=== PATIENT | male | born 2000 | race Caucasian/White ===

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

== ENCOUNTER 2022-08-30 14:11 | Inpatient (IN) | payer OTHER ==
[~2022-08-30 14:11] MED LIST: Iopamidol-370 76% 500 ML 1 ML ONE
[2022-08-30] MEDS ORDERED: FENTANYL 50 MCG/ML 1 ML VIAL ONE (14:35)
[2022-08-30] MEDS ORDERED: Ketamine 50 MG/ML (10ML VIAL) ONE (14:56)
[2022-08-30 15:03] LABS: Hemoglobin 13.9 g/dL (14.0-18.0); Mean Corpuscular HGB CONC 33.2 g/dL (32.0-36.0); Mean Corpuscular Hemoglobin 30.6 pg (25.0-35.0); Mean Corpuscular Volume 92.2 fl (78.0-98.0); Mean Platelet Volume 7.4 fL (7.4-10.4); Platelet Count 601 10x3/uL (130-400); RBC Distribution Width 11.7 % (11.5-14.5); Red Blood Cell (RBC) Count 4.55 mill/uL (4.00-5.20)
[2022-08-30] MEDS ORDERED: Rocuronium Bromide 10 MG/ML (10ML VIAL) ONE (15:06)
[2022-08-30] MEDS ORDERED: Midazolam HCl 2 mg/2 ml Vial ONE ×2 (15:11→16:21)
[2022-08-30] MEDS ORDERED: Fentanyl CADD 100 ML IV SCH ×2 (15:15→18:30)
[2022-08-30 15:22] LABS: Band 9 % (5-11); Lymphocytes 16 % (28-48); MDiff Complete? YES; Monocytes 6 % (0-4); Neutrophil 67 % (31-61); Platelet Morphology Comment Appears Increased; RBC Morphology Normal; Reactive Lymphocytes 2 % (0-10); Reflex for Review?? YES
[2022-08-30 15:24] LABS: ALT (SGPT) 114 U/L (8-55); AST (SGOT) 136 U/L (10-45); Albumin 4.6 g/dL (3.5-5.0); Alkaline Phosphatase 105 U/L (50-130); Anion Gap 19 mmol/L (10-20); BUN (Urea Nitrogen) 15 mg/dL (8.4-21.0); Bilirubin, Total 0.5 mg/dL (0.2-1.2); Calc. Creatinine Clearance 0 mL/min (70-130); Calcium 9.3 mg/dL (7.8-10.44); Carbon Dioxide 17 mmol/L (22-29); Chloride 105 mmol/L (98-107); Estimated GFR 88; Globulin 2.8 g/dL (2.4-3.5); Glucose 229 mg/dL (70-105); Potassium 4.3 mmol/L (3.5-5.1); Protein, Total 7.4 g/dL (6.0-8.3); Sodium 137 mmol/L (136-145)
[2022-08-30 16:36] LABS: SARS-CoV-2 NAA Rapid Test Not Detected (NotDetected)
[2022-08-30 16:37] LABS: Actual Bicarbonate (HCO3a) 23.4 mEq/L (22-28); Analyzer IN Cardio ER; Base Excess (BEa) -5.2 mEq/L (-2.0 to +3.0); CO2 Tension 58.4 mmHg (35.0-45.0); Calcium, Ionized (arterial) 1.18 mmol/L (1.12-1.30); Carboxyhemoglobin (COHb) 0.3 gm% (0.0-3.0); Hemoglobin (Hb) 14.7 g/dL (11.4-15.4); O2 Tension (PaO2), arterial 149.3 mmHg (80.0-100.0); Potassium - ABG Lab 3.63 mmol/L (3.70-5.30); pH, Arterial 7.22 (7.35-7.45)
[2022-08-30 16:38] LABS: Puncture Site RRA
[2022-08-30] MEDS ORDERED: Boostrix 0.5 ML (Tdap) VIAL (>/=7 yrs of age) ONE (16:43)
[2022-08-30] MEDS ORDERED: Propofol 1,000 MG/100 ML VIAL IV ONE (16:48)
[2022-08-30] MEDS ORDERED: Dextrose 50% Abboject 50 ML SYRINGE SLOW IVP PRN (17:36)
[2022-08-30] MEDS ORDERED: Dextrose 5% in Water 1,000 ML IV PRN (17:36)
[2022-08-30] MEDS ORDERED: Ondansetron PF 4 MG/2 ML Vial IVP PRN (17:36)
[2022-08-30] MEDS ORDERED: hydrALAZINE 20 MG/ML VIAL SLOW IVP PRN (17:36)
[2022-08-30] MEDS ORDERED: Insulin Regular 300 UNITS/3 ML VIAL SC PRN (17:36)
[2022-08-30] MEDS ORDERED: Ventilator Sedation Protocol 1 EACH FS SCH (17:45)
[2022-08-30 18:17] LABS: Actual Bicarbonate (HCO3a) 24.4 mEq/L (22-28); Base Excess (BEa) -3.3 mEq/L (-2.0 to +3.0); CO2 Tension 55.2 mmHg (35.0-45.0); Calcium, Ionized (arterial) 1.18 mmol/L (1.12-1.30); Carboxyhemoglobin (COHb) 0.4 gm% (0.0-3.0); Hemoglobin (Hb) 13.4 g/dL (11.4-15.4); O2 Tension (PaO2), arterial 105.4 mmHg (80.0-100.0); Potassium - ABG Lab 3.97 mmol/L (3.70-5.30); pH, Arterial 7.26 (7.35-7.45)
[2022-08-30] MEDS ORDERED: Midazolam HCl 2 mg/2 ml Vial SLOW IVP PRN (18:18)
[2022-08-30] MEDS ORDERED: TETANUS, DIPHTHERIA TOX,ADULT (TDVAX) 0.5 ML VIAL IM ONE (18:30)
[2022-08-30] MEDS ORDERED: DISCONTINUE PREVIOUS NARCOTIC PAIN MEDICATIONS AND BENZODIAZEPINES FS SCH (18:30)
[2022-08-30] MEDS ORDERED: Propofol 1,000 MG/100 ML VIAL IV PRN (18:30)
[2022-08-30] MEDS ORDERED: Morphine 4 MG/ML VIAL SLOW IVP PRN (18:30)
[2022-08-30] MEDS ORDERED: Fentanyl BOLUS 250 ML IVPB PRN (18:30)
[2022-08-30] MEDS ORDERED: Propofol BOLUS 1,000 MG/100 ML VIAL IV PRN (18:30)
[2022-08-30 18:33] LABS: Puncture Site RBR
[2022-08-30] MEDS: Sodium Chloride 0.9% 1,000 ML IV SCH (18:35)
[2022-08-30 18:43] LABS: INR-International Normal Ratio 1.9; Prothrombin Time 22.1 sec (12.0-14.7)
[2022-08-30 18:44] LABS: PTT 47.9 sec (22.9-36.1)
[2022-08-30 18:48] LABS: Lactic Acid 1.5 mmol/L (0.5-2.2)
[2022-08-30 18:51] LABS: Alcohol Less than 10 mg/dL (Less than 10); Magnesium 1.1 mg/dL (1.7-2.2); Phosphorus 1.9 mg/dL (2.3-4.7)
[2022-08-30 18:56] LABS: Troponin I Less than 0.010 ng/mL (< 0.028)
[2022-08-30 19:09] LABS: Bacteria/HPF None Seen HPF (None Seen); Bilirubin Negative (Negative); Blood, Urine Trace (Negative); CAUTI Indications for Culture Alt mental st,lethar; Clarity Clear (Clear); Glucose, Urine (Dipstick) Normal (Negative); Ketone, Urine Negative (Negative); Leukocyte Negative Leu/uL (Negative); Nitrite Negative (Negative); Protein, Urine (Dipstick) Negative (Neg-Trace); RBC/HPF 0-3 HPF (0-3); Squamous Epithelial 0-3 HPF (0-3); Urobilinogen Normal mg/dL (Less than 2); WBC/HPF 0-3 HPF (0-3)
[2022-08-30 19:11] LABS: Specific Gravity, Urine 1.063 (1.002-1.036)
[2022-08-30 19:12] LABS: Urine Culture Reflex No No
[2022-08-30 19:15] LABS: Amphetamine Not Detected (NotDetected); Barbiturates Screen Not Detected (NotDetected); Benzodiazepine Screen Not Detected (NotDetected); Cocaine Metabolite Screen Not Detected (NotDetected); Methadone Not Detected (NotDetected); Methamphetamine Not Detected (NotDetected); Opiate Screen Detected (NotDetected); Oxycodone Screen Not Detected (NotDetected); Phencyclidine (PCP) Not Detected (NotDetected); THC/Cannabinoid Screen Not Detected (NotDetected); Tricyclic Screen Not Detected (NotDetected)
[2022-08-30] MEDS ORDERED: Magnesium 2 GM/50 ML(in water) 4 GM in Premix Bag 1 BAG IVPB SCH (19:15)
[2022-08-30] MEDS ORDERED: Sodium Phosphate 30 MMOL in Sodium Chloride 0.9% 250 ML 250 ML IVPB SCH (19:15)
[2022-08-30 19:53] LABS: Actual Bicarbonate (HCO3a) 22.9 mEq/L (22-28); Base Excess (BEa) -3.4 mEq/L (-2.0 to +3.0); CO2 Tension 45.9 mmHg (35.0-45.0); Calcium, Ionized (arterial) 1.15 mmol/L (1.12-1.30); Carboxyhemoglobin (COHb) 0.1 gm% (0.0-3.0); Hemoglobin (Hb) 13.4 g/dL (11.4-15.4); O2 Tension (PaO2), arterial 134.7 mmHg (80.0-100.0); Potassium - ABG Lab 4.12 mmol/L (3.70-5.30); pH, Arterial 7.32 (7.35-7.45)
[2022-08-30 19:56] LABS: ALV-art Gradient 93.125 mmHg (0-20); Puncture Site RBR
[2022-08-30] MEDS: Famotidine/PF 20 mg/2ml Vial SLOW IVP SCH (21:01)
[2022-08-30 23:53] LABS: Actual Bicarbonate (HCO3a) 22.9 mEq/L (22-28); CO2 Tension 44.5 mmHg (35.0-45.0); Hemoglobin (Hb) 12.6 g/dL (11.4-15.4); O2 Tension (PaO2), arterial 114.2 mmHg (80.0-100.0); Potassium - ABG Lab 4.48 mmol/L (3.70-5.30); pH, Arterial 7.33 (7.35-7.45)
[2022-08-30 23:55] LABS: Puncture Site RBR
[2022-08-30 23:56] LABS: ALV-art Gradient 115.375 mmHg (0-20)
[2022-08-31] MEDS: Sodium Chloride 0.9% 1,000 ML IV SCH ×3 (02:12→18:51)
[2022-08-31 06:57] LABS: Base Excess (BEa) -1.5 mEq/L (-2.0 to +3.0); CO2 Tension 38.1 mmHg (35.0-45.0); Calcium, Ionized (arterial) 1.13 mmol/L (1.12-1.30); Carboxyhemoglobin (COHb) 0.2 gm% (0.0-3.0); Hemoglobin (Hb) 12.3 g/dL (11.4-15.4); O2 Tension (PaO2), arterial 121.7 mmHg (80.0-100.0); Potassium - ABG Lab 4.28 mmol/L (3.70-5.30)
[2022-08-31 07:03] LABS: ALV-art Gradient 115.875 mmHg (0-20); Puncture Site RBA
[2022-08-31] MEDS: Famotidine/PF 20 mg/2ml Vial SLOW IVP SCH ×2 (08:44→20:08)
[2022-08-31 10:07] LABS: #Lymphocytes 1.6 thou/uL (1.20-3.40); #Monocytes 1.6 thou/uL (0.11-0.59); #Neutrophils 15.4 thou/uL (1.40-6.50); %Basophils 0.1 % (0.0-1.0); %Eosinophils 0.1 % (0.0-10.0); %Lymphocytes 8.7 % (28.0-48.0); %Monocytes 8.7 % (0.0-4.0); %Neutrophils 82.5 % (31.0-61.0); Hemoglobin 10.5 g/dL (14.0-18.0); Mean Corpuscular HGB CONC 33.1 g/dL (32.0-36.0); Mean Corpuscular Hemoglobin 31.1 pg (25.0-35.0); Mean Corpuscular Volume 93.8 fl (78.0-98.0); Mean Platelet Volume 6.7 fL (7.4-10.4); Platelet Count 361 10x3/uL (130-400); RBC Distribution Width 11.7 % (11.5-14.5); Red Blood Cell (RBC) Count 3.39 mill/uL (4.00-5.20); White Blood Cell (WBC) Count 18.7 10x3/uL (4.8-10.8)
[2022-08-31 10:30] LABS: ALT (SGPT) 65 U/L (8-55); AST (SGOT) 44 U/L (10-45); Albumin 3.4 g/dL (3.5-5.0); Alkaline Phosphatase 65 U/L (50-130); Anion Gap 11 mmol/L (10-20); BUN (Urea Nitrogen) 8 mg/dL (8.4-21.0); Bilirubin, Total 0.5 mg/dL (0.2-1.2); Calc. Creatinine Clearance 193 mL/min (70-130); Calcium 7.6 mg/dL (7.8-10.44); Carbon Dioxide 21 mmol/L (22-29); Chloride 106 mmol/L (98-107); Estimated GFR 134; Globulin 1.9 g/dL (2.4-3.5); Glucose 106 mg/dL (70-105); Magnesium 1.9 mg/dL (1.7-2.2); Phosphorus 3.8 mg/dL (2.3-4.7); Potassium 3.8 mmol/L (3.5-5.1); Protein, Total 5.3 g/dL (6.0-8.3); Sodium 134 mmol/L (136-145)
[2022-08-31] MEDS: Aripiprazole 2 MG TAB PO SCH (10:44)
[2022-08-31] MEDS ORDERED: Potassium Phosphate 15 MMOL in Sodium Chloride 0.9% 250 ML 250 ML IVPB SCH (12:15)
[2022-08-31] MEDS: Morphine 4 MG/ML VIAL SLOW IVP PRN ×2 (16:01→22:18)
[2022-08-31] MEDS: Acetaminophen 500 MG TAB PO SCH ×2 (16:16→20:08)
[2022-08-31] MEDS: Acetaminophen/Codeine 30-300mg Tablet PO PRN (19:25)
[2022-09-01] MEDS: Sodium Chloride 0.9% 1,000 ML IV SCH (03:14)
[2022-09-01] MEDS: Acetaminophen 500 MG TAB PO SCH ×4 (03:14→20:19)
[2022-09-01 04:18] LABS: #Eosinphils 0.1 thou/uL (0.0-0.7); #Lymphocytes 1.9 thou/uL (1.20-3.40); #Monocytes 1.3 thou/uL (0.11-0.59); #Neutrophils 12.4 thou/uL (1.40-6.50); %Basophils 0.1 % (0.0-1.0); %Eosinophils 0.8 % (0.0-10.0); %Lymphocytes 12.1 % (28.0-48.0); %Monocytes 8.4 % (0.0-4.0); %Neutrophils 78.5 % (31.0-61.0); Hemoglobin 11.1 g/dL (14.0-18.0); Mean Corpuscular HGB CONC 33.3 g/dL (32.0-36.0); Mean Corpuscular Hemoglobin 31.2 pg (25.0-35.0); Mean Corpuscular Volume 93.9 fl (78.0-98.0); Mean Platelet Volume 7.1 fL (7.4-10.4); Platelet Count 323 10x3/uL (130-400); RBC Distribution Width 11.7 % (11.5-14.5); Red Blood Cell (RBC) Count 3.57 mill/uL (4.00-5.20); White Blood Cell (WBC) Count 15.8 10x3/uL (4.8-10.8)
[2022-09-01 04:42] LABS: Anion Gap 10 mmol/L (10-20); BUN (Urea Nitrogen) 6 mg/dL (8.4-21.0); Calc. Creatinine Clearance 186 mL/min (70-130); Calcium 8.7 mg/dL (7.8-10.44); Carbon Dioxide 24 mmol/L (22-29); Chloride 104 mmol/L (98-107); Estimated GFR 134; Glucose 91 mg/dL (70-105); Phosphorus 2.9 mg/dL (2.3-4.7); Potassium 4.1 mmol/L (3.5-5.1); Sodium 134 mmol/L (136-145)
[2022-09-01] MEDS: Acetaminophen/Codeine 30-300mg Tablet PO PRN (05:12)
[2022-09-01] MEDS: Morphine 4 MG/ML VIAL SLOW IVP PRN ×4 (06:23→20:19)
[2022-09-01] MEDS ORDERED: PHOS-NAK 1 PKT PACK PO SCH (08:00)
[2022-09-01] MEDS: Aripiprazole 2 MG TAB PO SCH (09:02)
[2022-09-01] MEDS: Famotidine 20 MG TAB PO SCH ×2 (09:03→20:19)
[2022-09-02] MEDS: Acetaminophen/Codeine 30-300mg Tablet PO PRN (00:42)
[2022-09-02] MEDS: Acetaminophen 500 MG TAB PO SCH (00:45)
[2022-09-02] MEDS: Morphine 4 MG/ML VIAL SLOW IVP PRN (04:08)
[2022-09-02 05:13] LABS: #Eosinphils 0.4 thou/uL (0.0-0.7); #Lymphocytes 1.9 thou/uL (1.20-3.40); #Monocytes 1.2 thou/uL (0.11-0.59); #Neutrophils 12.4 thou/uL (1.40-6.50); %Basophils 0.3 % (0.0-1.0); %Eosinophils 2.4 % (0.0-10.0); %Lymphocytes 12.1 % (28.0-48.0); %Monocytes 7.5 % (0.0-4.0); %Neutrophils 77.7 % (31.0-61.0); Mean Corpuscular Hemoglobin 30.8 pg (25.0-35.0); Mean Corpuscular Volume 93.1 fl (78.0-98.0); Mean Platelet Volume 6.8 fL (7.4-10.4); Platelet Count 429 10x3/uL (130-400); RBC Distribution Width 11.5 % (11.5-14.5)
[2022-09-02 05:35] LABS: Anion Gap 12 mmol/L (10-20); BUN (Urea Nitrogen) 8 mg/dL (8.4-21.0); Calc. Creatinine Clearance 154 mL/min (70-130); Calcium 9.3 mg/dL (7.8-10.44); Carbon Dioxide 26 mmol/L (22-29); Chloride 102 mmol/L (98-107); Estimated GFR 127; Glucose 95 mg/dL (70-105); Magnesium 2.1 mg/dL (1.7-2.2); Phosphorus 2.8 mg/dL (2.3-4.7); Potassium 4.1 mmol/L (3.5-5.1); Sodium 136 mmol/L (136-145)
[2022-09-02] MEDS ORDERED: Acetaminophen 500 MG TAB PO SCH (08:22)
[2022-09-02] MEDS ORDERED: traMADol HCl 50 MG TAB PO PRN (08:22)
[2022-09-02] MEDS ORDERED: traMADol HCl 50 MG TAB PO SCH ×2 (09:00→12:00)
[2022-09-02] MEDS ORDERED: Ketorolac Tromethamine 30 MG/ML VIAL IVP SCH (09:48)
[2022-09-02] MEDS ORDERED: Cyclobenzaprine 10 MG TAB PO PRN (09:51)
[2022-09-02] MEDS: Enoxaparin Sodium 40 MG/0.4 ML SYRINGE SC SCH (10:44)
[2022-09-02] MEDS: Senokot S 8.6-50 MG TAB PO SCH ×2 (10:45→20:30)
[2022-09-02] MEDS: Polyethylene Glycol 3350 17 GM Packet PO SCH (10:45)
[2022-09-02] MEDS: Aripiprazole 2 MG TAB PO SCH (10:45)
[2022-09-02] MEDS: Famotidine 20 MG TAB PO SCH ×2 (10:45→20:30)
[2022-09-02] MEDS ORDERED: Pregabalin 25 MG CAP PO SCH (11:00)
[2022-09-02] MEDS: Acetaminophen/Codeine 30-300mg Tablet PO SCH ×3 (12:20→23:35)
[2022-09-02] MEDS: Ketorolac Tromethamine 30 MG/ML VIAL IVP SCH ×3 (12:21→23:26)
[2022-09-02] MEDS: Pregabalin 25 MG CAP PO SCH (20:29)
[2022-09-03] MEDS: Ketorolac Tromethamine 30 MG/ML VIAL IVP SCH ×4 (04:43→23:53)
[2022-09-03] MEDS: Acetaminophen/Codeine 30-300mg Tablet PO SCH ×4 (04:43→23:54)
[2022-09-03 04:52] VITALS: BMI 25.2
[2022-09-03 06:42] LABS: #Eosinphils 0.8 thou/uL (0.0-0.7); #Lymphocytes 2.3 thou/uL (1.20-3.40); #Monocytes 1.2 thou/uL (0.11-0.59); #Neutrophils 8.5 thou/uL (1.40-6.50); %Basophils 0.4 % (0.0-1.0); %Eosinophils 6.4 % (0.0-10.0); %Lymphocytes 17.7 % (28.0-48.0); %Monocytes 9.4 % (0.0-4.0); %Neutrophils 66.1 % (31.0-61.0); Hemoglobin 11.3 g/dL (14.0-18.0); Mean Corpuscular HGB CONC 32.9 g/dL (32.0-36.0); Mean Corpuscular Hemoglobin 30.9 pg (25.0-35.0); Mean Corpuscular Volume 93.8 fl (78.0-98.0); Mean Platelet Volume 6.7 fL (7.4-10.4); Platelet Count 411 10x3/uL (130-400); RBC Distribution Width 11.6 % (11.5-14.5); Red Blood Cell (RBC) Count 3.65 mill/uL (4.00-5.20); White Blood Cell (WBC) Count 12.8 10x3/uL (4.8-10.8)
[2022-09-03] MEDS: Senokot S 8.6-50 MG TAB PO SCH ×2 (09:22→20:57)
[2022-09-03] MEDS: Enoxaparin Sodium 40 MG/0.4 ML SYRINGE SC SCH (09:22)
[2022-09-03] MEDS: Polyethylene Glycol 3350 17 GM Packet PO SCH (09:22)
[2022-09-03] MEDS: Aripiprazole 2 MG TAB PO SCH (09:22)
[2022-09-03] MEDS: Famotidine 20 MG TAB PO SCH ×2 (09:22→20:58)
[2022-09-03] MEDS: Pregabalin 25 MG CAP PO SCH ×2 (09:22→20:58)
[2022-09-04] MEDS: Ketorolac Tromethamine 30 MG/ML VIAL IVP SCH ×2 (05:09→11:47)
[2022-09-04] MEDS: Acetaminophen/Codeine 30-300mg Tablet PO SCH ×3 (05:10→17:09)
[2022-09-04] MEDS: Aripiprazole 2 MG TAB PO SCH (08:53)
[2022-09-04] MEDS: Senokot S 8.6-50 MG TAB PO SCH ×2 (08:53→21:42)
[2022-09-04] MEDS: Pregabalin 25 MG CAP PO SCH ×2 (08:53→21:42)
[2022-09-04] MEDS: Enoxaparin Sodium 40 MG/0.4 ML SYRINGE SC SCH (08:54)
[2022-09-04] MEDS: Famotidine 20 MG TAB PO SCH ×2 (08:54→21:43)
[2022-09-04] MEDS: Polyethylene Glycol 3350 17 GM Packet PO SCH (08:59)
[2022-09-05] MEDS: Acetaminophen/Codeine 30-300mg Tablet PO SCH ×3 (00:08→12:54)
[2022-09-05] MEDS: Aripiprazole 2 MG TAB PO SCH (09:14)
[2022-09-05] MEDS: Polyethylene Glycol 3350 17 GM Packet PO SCH (09:14)
[2022-09-05] MEDS: Pregabalin 25 MG CAP PO SCH (09:14)
[2022-09-05] MEDS: Senokot S 8.6-50 MG TAB PO SCH (09:14)
[2022-09-05] MEDS: Enoxaparin Sodium 40 MG/0.4 ML SYRINGE SC SCH (09:15)
[2022-09-05] MEDS: Famotidine 20 MG TAB PO SCH (09:15)
[2022-09-05 12:14] VITALS: BP 109/72; TEMP 98.6
== END 2022-09-05 15:04 | disposition home or self-care (01) | DRG 208 ==
LOC: ERS 14:11 → CCU 15:59 → SURG A 09-01 11:55
PROVIDERS: ADMIT Surgery; ATTEND Surgery
PROC: 5A1935Z Respiratory Ventilation, Less than 24 Consecutive Hours (ICD-10-PCS; principal; 2022-08-30)
PROC: 0W9930Z Drainage of Right Pleural Cavity with Drainage Device, Percutaneous Approach (ICD-10-PCS; 2022-08-30)
PROC: 0BH17EZ Insertion of Endotracheal Airway into Trachea, Via Natural or Artificial Opening (ICD-10-PCS; 2022-08-30)
DX: S27.2XXA Traumatic hemopneumothorax, initial encounter (principal); S27.331A Laceration of lung, unilateral, initial encounter; J96.02 Acute respiratory failure with hypercapnia; S22.029A Unspecified fracture of second thoracic vertebra, initial encounter for closed fracture; F84.0 Autistic disorder; S27.322A Contusion of lung, bilateral, initial encounter; Z20.822 Contact with and (suspected) exposure to COVID-19; T79.7XXA Traumatic subcutaneous emphysema, initial encounter; F90.9 Attention-deficit hyperactivity disorder, unspecified type; E83.39 Other disorders of phosphorus metabolism; E83.42 Hypomagnesemia; D72.829 Elevated white blood cell count, unspecified; S42.034A Nondisplaced fracture of lateral end of right clavicle, initial encounter for closed fracture; W18.39XA Other fall on same level, initial encounter; Z28.21 Immunization not carried out because of patient refusal; Z88.0 Allergy status to penicillin; Z79.899 Other long term (current) drug therapy
CPT/HCPCS: 31500; 32551; 36415; 36416; 36600; 70450; 70498; 71045; 71260; 72125; 74177; 80048; 80053; 80306; 80307; 81001; 82805; 83605; 83735; 84100; 84484; 85025; 85060; 85610; 85730; 90471; 90715; 93005; 93010; 94003; 94640; 96365; 96374; 96375; 96376; J1650; J1885; J1956; J2250; J2270; J2405; J2704; J3010; J3475; J7050; J7620; Q9967; S0028; U0002

== ENCOUNTER 2022-09-16 14:25 | Outpatient (CLI) | payer OTHER | END 2022-09-16 14:26 | disposition home or self-care (01) | LOC: RAD 14:25 | PROVIDERS: ATTEND Surgery | DX: J94.2 Hemothorax (principal) | CPT/HCPCS: 71046 ==

== ENCOUNTER 2023-10-30 16:38 | Emergency (ER) | payer OTHER ==
[~2023-10-30 16:38] MED LIST changes: -Iopamidol-370 76% 500 ML 1 ML ONE; +Iopamidol-370 76% 500 ML MDV (1 ML CHARGE) ONE
[2023-10-30] MEDS ORDERED: Ondansetron ODT 4 MG TAB ONE (16:56)
[2023-10-30 17:19] LABS: #Basophils 0.1 thou/uL (0.0-0.2); #Eosinphils 0.8 thou/uL (0.0-0.7); #Neutrophils 10.3 thou/uL (1.40-6.50); %Basophils 0.5 % (0.0-1.0); %Eosinophils 5.3 % (0.0-10.0); %Lymphocytes 20.9 % (28.0-48.0); %Monocytes 6.5 % (0.0-4.0); %Neutrophils 66.5 % (31.0-61.0); Hematocrit 46.9 % (42.0-52.0); Hemoglobin 15.4 g/dL (14.0-18.0); Mean Corpuscular HGB CONC 32.8 g/dL (32.0-36.0); Mean Corpuscular Volume 91.2 fl (78.0-98.0); Mean Platelet Volume 8.9 fL (7.4-10.4); Platelet Count 470 10x3/uL (130-400); RBC Distribution Width 12.5 % (11.5-14.5); Red Blood Cell (RBC) Count 5.14 mill/uL (4.00-5.20); White Blood Cell (WBC) Count 15.4 10x3/uL (4.8-10.8)
[2023-10-30 17:41] LABS: ALT (SGPT) 20 U/L (8-55); AST (SGOT) 14 U/L (5-34); Albumin 4.9 g/dL (3.5-5.0); Alkaline Phosphatase 100 U/L (50-130); Anion Gap 14 mmol/L (10-20); BUN (Urea Nitrogen) 10 mg/dL (8.9-20.6); Bilirubin, Total 0.6 mg/dL (0.2-1.2); Calc. Creatinine Clearance 0 mL/min (70-130); Calcium 9.5 mg/dL (7.8-10.44); Carbon Dioxide 22 mmol/L (22-29); Chloride 107 mmol/L (98-107); Estimated GFR 107; Globulin 2.6 g/dL (2.4-3.5); Glucose 85 mg/dL (70-105); Lipase 6 U/L (8-78); Protein, Total 7.5 g/dL (6.0-8.3); Sodium 139 mmol/L (136-145)
== END 2023-10-30 19:44 | disposition home or self-care (01) ==
LOC: ERS 16:38
DX: K21.9 Gastro-esophageal reflux disease without esophagitis (principal)
CPT/HCPCS: 36415; 74177; 80053; 83690; 85025; Q0162

== ENCOUNTER 2023-10-31 16:56 | Emergency (ER) | payer OTHER ==
[2023-10-31 17:50] LABS: #Basophils 0.1 thou/uL (0.0-0.2); #Neutrophils 8.7 thou/uL (1.40-6.50); %Basophils 0.5 % (0.0-1.0); %Eosinophils 0.4 % (0.0-10.0); %Lymphocytes 9.2 % (28.0-48.0); %Monocytes 9.4 % (0.0-4.0); %Neutrophils 80.2 % (31.0-61.0); Hematocrit 45.2 % (42.0-52.0); Hemoglobin 15.6 g/dL (14.0-18.0); Mean Corpuscular HGB CONC 34.5 g/dL (32.0-36.0); Mean Corpuscular Hemoglobin 30.6 pg (25.0-35.0); Mean Corpuscular Volume 88.6 fl (78.0-98.0); Platelet Count 499 10x3/uL (130-400); RBC Distribution Width 12.4 % (11.5-14.5); White Blood Cell (WBC) Count 10.9 10x3/uL (4.8-10.8)
[2023-10-31 18:15] LABS: ALT (SGPT) 22 U/L (8-55); AST (SGOT) 14 U/L (5-34); Alkaline Phosphatase 95 U/L (50-130); Anion Gap 15 mmol/L (10-20); BUN (Urea Nitrogen) 14 mg/dL (8.9-20.6); Bilirubin, Total 0.6 mg/dL (0.2-1.2); Calc. Creatinine Clearance 0 mL/min (70-130); Carbon Dioxide 21 mmol/L (22-29); Chloride 108 mmol/L (98-107); Estimated GFR 88; Glucose 109 mg/dL (70-105); Lipase 6 U/L (8-78); Potassium 4.1 mmol/L (3.5-5.1); Sodium 140 mmol/L (136-145)
[2023-10-31] MEDS ORDERED: Ketorolac Tromethamine 30 MG (1 mL) VIAL ONE (19:27)
[2023-10-31] MEDS ORDERED: Ondansetron PF 4 MG/2 ML Vial ONE (19:27)
[2023-10-31 20:29] LABS: SARS-CoV-2 NAA Rapid Test DETECTED (NotDetected)
[2023-10-31 21:19] LABS: Bilirubin Negative (Negative); Blood, Urine 1+ (Negative); CAUTI Indications for Culture Pelvic or flank pain; Clarity Extra Turbid (Clear); Glucose, Urine (Dipstick) Normal (Negative); Ketone, Urine 40 mg/dL (Negative); Leukocyte Negative Leu/uL (Negative); Nitrite Negative (Negative); Protein, Urine (Dipstick) 50 mg/dL (Neg-Trace); Specific Gravity, Urine 1.046 (1.002-1.036); Squamous Epithelial 0-3 HPF (0-3); WBC/HPF None Seen HPF (0-3); pH, Urine 5.5 (5.0-9.0)
[2023-10-31 21:35] LABS: Bacteria/HPF None Seen HPF (None Seen); Mucous/LPF 1+ LPF (<2+)
[2023-10-31 21:36] LABS: Urine Culture Reflex No No
== END 2023-10-31 21:50 | disposition home or self-care (01) ==
LOC: ERS 16:56
DX: U07.1 COVID-19 (principal); G40.909 Epilepsy, unspecified, not intractable, without status epilepticus; F90.9 Attention-deficit hyperactivity disorder, unspecified type; K21.9 Gastro-esophageal reflux disease without esophagitis; Z79.899 Other long term (current) drug therapy; R11.10 Vomiting, unspecified
CPT/HCPCS: 36415; 71046; 74176; 74177; 80053; 81001; 83690; 85025; 96361; 96374; 96375; J1885; J2405; Q0162; Q9967